=== PATIENT | male | born 1995 | race Caucasian/White ===

== ENCOUNTER 2016-12-25 02:20 | Emergency (ER) | payer MEDICAID, OTHER ==
[~2016-12-25] VITALS: Ht 177.8 cm; Wt 70.3 kg
[2016-12-25 02:30] VITALS: BP 138/80
--- NOTE | 2016-12-25 02:39 | NUR ---
Dr. Malagon evaluating patient at bedside.
--- NOTE | 2016-12-25 02:39 | NUR ---
PT TAKEN TO BED 6
[2016-12-25 03:05] VITALS: BP 138/80
--- NOTE | 2016-12-25 03:05 | NUR ---
Patient discharged with v/s stable. Written and verbal after care instructions given and explained. Patient verbalized understanding. Ambulatory with steady gait. All questions addressed prior to discharge. Advised to follow up with PMD.
== END 2016-12-25 03:05 | disposition home or self-care (01) ==
LOC: MED 02:20
DX: S97.112A Crushing injury of left great toe, initial encounter (principal); L60.8 Other nail disorders; Z88.1 Allergy status to other antibiotic agents; W20.8XXA Other cause of strike by thrown, projected or falling object, initial encounter; Y93.89 Activity, other specified; Y92.89 Other specified places as the place of occurrence of the external cause; Y99.8 Other external cause status
CPT/HCPCS: 90471; 90715; 99283

== ENCOUNTER 2019-01-15 17:36 | Emergency (ER) | payer SELFPAY ==
[~2019-01-15] VITALS: Ht 177.8 cm; Wt 74.8 kg
[2019-01-15 17:47] VITALS: BP 143/83
--- NOTE | 2019-01-15 17:59 | NUR ---
PT BIB SELF STATING HE HAD UNPROTECTED SEX LAST NIGHT W/ 2 MEN, WOULD LIKE PREP. DENIES PAIN AT THIS TIME, NO PENILE DISCHARGE OR BURNING URINATION. VSS. ER TO SEE PT. MEDHX:DENIES RX:DENIES
[2019-01-15] MEDS ORDERED: EMTRICITABINE/TENOFOVIR 200-300MG 1 TAB PO ONE (18:20)
--- NOTE | 2019-01-15 19:08 | NUR ---
MEDICATION IS NOT AVAILABLE, ER NOTIFIED
[2019-01-15 19:11] LABS: ANION GAP 15.7 (8-16); CARBON DIOXIDE 27.2 mmol/L (21-32); CREATININE 1.1 mg/dL (0.7-1.3); POTASSIUM 3.9 mmol/L (3.5-5.1)
[2019-01-15 19:16] LABS: ALBUMIN 4.1 g/dL (3.4-5.0); TOTAL BILIRUBIN 1.6 mg/dL (0.0-1.0)
[2019-01-15 19:32] VITALS: BP 138/88
--- NOTE | 2019-01-15 19:32 | NUR ---
Patient discharged with v/s stable. Written and verbal after care instructions given and explained. Patient alert, oriented and verbalized understanding of instructions. Ambulatory with steady gait. All questions addressed prior to discharge. ID band removed. Patient advised to follow up with PMD. Rx of RALTEGRAVIR 400MG AND TRUVADA 200MG-300MG given. Patient educated on indication of medication including possible reaction and side effects. Opportunity to ask questions provided and answered.
== END 2019-01-15 19:32 | disposition home or self-care (01) ==
LOC: MED 17:36
DX: Z20.6 Contact with and (suspected) exposure to human immunodeficiency virus [HIV] (principal)
CPT/HCPCS: 36415; 80053; 86702; 87491; 99283

== ENCOUNTER 2019-06-11 19:13 | Emergency (ER) | payer MEDICAID ==
[~2019-06-11] VITALS: Ht 177.8 cm; Wt 74.4 kg
[2019-06-11 19:17] VITALS: BP 149/86
--- NOTE | 2019-06-11 19:30 | NUR ---
PT ARRIVED TO ED C/O BODY ACHES, FEVER,FATIGUE, CHILLS, CHANGE OF APPETITE X THURSDAY. PT RATES PAIN 4/10 ON LOWER BACK AND DESCRIBES IT SORE. PT SATTES HE TOOK AN IBUPROFEN 2 HRS AGO FOR FEVER. PT THINKS HE GOT HIV AND THRUSH. PT WAS LAST TESTED 3 MONTHS AGO FOR HIV AND RESULTS WERE NEGATIVE. PT THINKS HE GOT HIV D/T UNPROTECTED SEX. PT HAS SWOLLEN GUMS. VSS. PMH: NONE. ALLERGIES: MONOCYCLINE.
--- NOTE | 2019-06-11 19:41 | NUR ---
AT BEDSIDE TO RICHARD KENDRICK
--- NOTE | 2019-06-11 19:54 | NUR ---
XR AT BEDSIDE.
[2019-06-11 20:34] LABS: ANION GAP 17.1 (8-16); CARBON DIOXIDE 24.6 mmol/L (21-32); CREATININE 1.1 mg/dL (0.7-1.3); POTASSIUM 3.7 mmol/L (3.5-5.1)
[2019-06-11 22:00] LABS: BASOPHILS % (AUTO) 0.4 % (0.0-2.0); EOSINOPHILS % (AUTO) 0.2 % (0.0-4.0); HEMOGLOBIN 15.7 g/dL (12.0-18.0); LYMPHOCYTES # (AUTO) 1.4 K/uL (2.0-11.5); LYMPHOCYTES % (AUTO) 17.9 % (20.5-51.1); MEAN CORPUSCULAR HEMOGLOBIN 30 pg (27-31); MEAN CORPUSCULAR HGB CONC 33 g/dL (33-37); MEAN CORPUSCULAR VOLUME 88.4 fL (80-94); MONOCYTES # (AUTO) 1.1 K/uL (0.8-1.0); MONOCYTES % (AUTO) 14.3 % (1.7-9.3); NEUTROPHILS # (AUTO) 5.3 K/uL (1.8-7.7); NEUTROPHILS % (AUTO) 67.2 % (42.2-75.2); PLATELET COUNT (AUTO) 238 K/uL (140-450); RED BLOOD CELL COUNT(AUTO) 5.31 MIL/uL (4.20-6.10); RED CELL DISTRIBUTION WIDTH 13.3 % (11.6-13.7)
--- NOTE | 2019-06-11 22:30 | NUR ---
Patient discharged with v/s stable. Written and verbal after care instructions given and explained. Patient verbalized understanding. Ambulatory with steady gait. All questions addressed prior to discharge. Advised to follow up with PMD. REMINDED PT TO FOLLOW UP FOR HIV BLOOD WORK IN 4-6WEEKS.
[2019-06-11 22:31] VITALS: BP 130/72
== END 2019-06-11 22:30 | disposition home or self-care (01) ==
LOC: MED 19:13
DX: J02.8 Acute pharyngitis due to other specified organisms (principal); B97.89 Other viral agents as the cause of diseases classified elsewhere; Z11.4 Encounter for screening for human immunodeficiency virus [HIV]; Z88.1 Allergy status to other antibiotic agents
CPT/HCPCS: 36415; 71045; 80048; 85025; 86703; 87081; 87804; 99284; Q0092